=== PATIENT | female | born 1985 | race Two or more races ===

== ENCOUNTER 2020-06-25 01:34 | Emergency (ER) | payer SELFPAY ==
[~2020-06-25] VITALS: Ht 162.6 cm; Wt 99.3 kg
[2020-06-25 02:47] LABS: Basophils # (auto) 0.1 10 ^3/uL (0-0.2); Basophils % (auto) 0.4 % (0.0-2.0); Eosinophils # (auto) 0.3 10 ^3/uL (0-0.8); Hematocrit 42.4 % (36.0-46.0); Hemoglobin 14.6 g/dL (12.2-16.2); Lymphocytes # (auto) 3.2 10 ^3/uL (0.4-5.4); Lymphocytes % (auto) 23.4 % (10.0-50.0); Mean Corpuscular Hemoglobin 30.3 pg (28.0-32.0); Mean Corpuscular Hgb Conc. 34.6 g/dL (32.0-36.0); Mean Corpuscular Volume 87.6 fL (80.0-100.0); Monocytes # (auto) 0.7 10 ^3/uL (0-1.3); Monocytes % (auto) 5.1 % (0.0-12.0); Neutrophils # (auto) 9.4 10 ^3/uL (1.6-8.6); Neutrophils % (auto) 69.1 % (37.0-80.0); Nucleated Red Blood Cells % 0.1 %; Platelet Count (auto) 309 10^3/uL (140-450); Red Blood Cells 4.84 10^6/uL (4.0-5.20); Red Cell Distribution Width 12.8 % (11.8-14.3); White Blood Cell 13.6 10^3/uL (4.4-10.8)
[2020-06-25 03:07] LABS: Albumin 3.6 g/dL (3.4-5.0); Amylase 37 U/L (25-115); Anion Gap 8 (5-15); BUN/Creatinine Ratio 11.8; Blood Urea Nitrogen 8 mg/dL (7-18); Calcium 8.7 mg/dL (8.5-10.1); Carbon Dioxide 22 mmol/L (21-32); Chloride 109 mmol/L (98-107); GFR African American 127 mL/min; GFR Non-African American 105 mL/min; Glucose 97 mg/dL (74-106); Lipase 71 U/L (73-393); Potassium 3.6 mmol/L (3.5-5.1); Sodium 139 mmol/L (136-145)
[2020-06-25 03:12] LABS: Alanine Aminotransferase 40 U/L (13-56); Alkaline Phosphatase 88 U/L (45-117); Aspartate Aminotransferase 39 U/L (15-37); Bilirubin, Total 0.5 mg/dL (0.2-1.0); Total Protein 6.7 g/dL (6.4-8.2)
[2020-06-25] MEDS ORDERED: ONDANSETRON HCL 4 MG/2 ML VIAL IV ONE (04:00)
[2020-06-25] MEDS ORDERED: SODIUM CHLORIDE 0.9% 1,000 ML IV ONE (04:00)
[2020-06-25] MEDS ORDERED: fentaNYL CITRATE 100 MCG/2 ML VL IV ONE (04:00)
[2020-06-25 06:00] VITALS: BP 100/59
== END 2020-06-25 06:55 | disposition home or self-care (01) ==
LOC: EDBD 01:34 → EDUNIT# 01:34 → ER 01:37
DX: K80.80 Other cholelithiasis without obstruction (principal); F17.210 Nicotine dependence, cigarettes, uncomplicated; Z98.51 Tubal ligation status
CPT/HCPCS: 36415; 76705; 80053; 82150; 83690; 84484; 85025; 93005; 96361; 96374; 96375; 99285; J2405; J3010; J7030

== ENCOUNTER 2021-05-21 10:59 | Emergency (ER) | payer BC, OTHER ==
[~2021-05-21] VITALS: Ht 165.1 cm; Wt 97.5 kg
[2021-05-21 11:49] LABS: Basophils # (auto) 0 10 ^3/uL (0-0.2); Basophils % (auto) 0.5 % (0.0-2.0); Eosinophils # (auto) 0.2 10 ^3/uL (0-0.8); Eosinophils % (auto) 2.9 % (0.0-7.0); Hematocrit 40.7 % (36.0-46.0); Hemoglobin 14.3 g/dL (12.2-16.2); Lymphocytes # (auto) 1.6 10 ^3/uL (0.4-5.4); Lymphocytes % (auto) 27.1 % (10.0-50.0); Mean Corpuscular Hemoglobin 30.1 pg (28.0-32.0); Mean Corpuscular Hgb Conc. 35.1 g/dL (32.0-36.0); Mean Corpuscular Volume 85.7 fL (80.0-100.0); Monocytes # (auto) 0.3 10 ^3/uL (0-1.3); Monocytes % (auto) 5.2 % (0.0-12.0); Neutrophils # (auto) 3.8 10 ^3/uL (1.6-8.6); Neutrophils % (auto) 64.3 % (37.0-80.0); Nucleated Red Blood Cells % 0.1 %; Red Blood Cells 4.75 10^6/uL (4.0-5.20); Red Cell Distribution Width 12.7 % (11.8-14.3)
[2021-05-21] MEDS ORDERED: ALUM & MAG HYDROX-SIMETH LIQ(MAALOX) 30 ML PO ONE (12:00)
[2021-05-21 12:07] LABS: Urine Bacteria NONE SEEN /hpf (None Seen); Urine Blood Negative /uL (Negative); Urine Specific Gravity 1.008 (1.001-1.035); Urine WBC 1 /hpf (0 - 5)
[2021-05-21 12:13] LABS: Albumin 3.9 g/dL (3.4-5.0); Calcium 9.1 mg/dL (8.5-10.1); Potassium 4.1 mmol/L (3.5-5.1)
[2021-05-21 12:17] LABS: Bilirubin, Total 0.4 mg/dL (0.2-1.0); Total Protein 7.2 g/dL (6.4-8.2)
[2021-05-21 17:15] VITALS: BP 100/70
[2021-05-21] MEDS ORDERED: ONDA-144 PO (18:41)
[2021-05-21] MEDS ORDERED: HYDR-4902 PO (18:41)
== END 2021-05-21 19:58 | disposition home or self-care (01) ==
LOC: ER 10:59
DX: K80.20 Calculus of gallbladder without cholecystitis without obstruction (principal); K42.9 Umbilical hernia without obstruction or gangrene; N70.11 Chronic salpingitis; N83.201 Unspecified ovarian cyst, right side
CPT/HCPCS: 36415; 74176; 76705; 76830; 76856; 80053; 81001; 81025; 83690; 85025